=== PATIENT | female | born 1965 | race Caucasian/White ===

== ENCOUNTER 2016-12-06 10:51 | Emergency (ER) ==
[2016-12-06 10:59] VITALS: BP 151/109
[2016-12-06 11:12] LABS: URINE CULTURE PL NEEDED? NO; URINE SOURCE CLEAN CATCH
[2016-12-06] MEDS ORDERED: TORADOL IM ONE (11:17)
[2016-12-06 11:26] LABS: BILIRUBIN URINE NEGATIVE (NEGATIVE); BLOOD URINE 1+ (NEGATIVE); CLARITY CLEAR (CLEAR); COLOR YELLOW; GLUCOSE URINE NEGATIVE (NEGATIVE); LEUKOCYTES URINE TRACE (NEGATIVE); NITRITE URINE NEGATIVE (NEGATIVE); PROTEIN URINE TRACE mg/dL (NEGATIVE); UROBILINOGEN URINE NORMAL
[2016-12-06 11:27] LABS: URINE EPITHELIAL CELLS >10 /HPF (<10); URINE WBC <10 /HPF (<10)
--- NOTE | 2016-12-06 11:29 | PROVIDER DOCUMENTATION ---
HPI-Musculoskeletal Pain/Inj - GENERAL Chief Complaint: Back Pain Stated Complaint: BACK PAIN Time Seen by Provider: 12/06/16 11:08 Source: patient - HX OF PRESENT ILLNESS-MUSKULOSKELTAL Nature of Presenting Problem: Pt is 51 y/o F presents to the ED with thoracic back pain. Pt states pain started yesterday. Pt states pain radiated to L flank and into L shoulder. Pt denies trauma or injury. Pt denies cough, cold and congestion. Quality of Pain: reports: aching Severity in ED: moderate Onset/Duration: 24 hours ago Timing: still present, intermittent Modifying Factors: improves with: movement (worse) Any recent injury?: No Locality of Occurance: Home Similar Symptoms Previously?: Yes Recently seen or treated by another doctor?: No - FALL INJURY Location of Pain/Injury: reports: none - BACK & NECK PAIN/INJURY Back/Neck Pain Location: reports: T-spine Back/Neck Pain Radiation: reports: shoulders (L), Other (L flank) Context / Method of Injury: reports: unknown Associated Symptoms: reports: muscle spasms, weakness in upper ext (L arm). denies: loss of bladder control, loss of bowel control, fever, lower back pain, numbness in legs/feet, numbness in upper ext, sensory/motor loss, tingling in legs/feet, tingling in upper ext, weakness in legs/feet History of Chronic Neck or Back Pain?: No - UPPER EXTREMITY PAIN/INJURY Extremities Pain Location: shoulder: left (pain) Context / Method of Injury: reports: unknown Associated Symptoms: reports: weakness in upper ext (L arm). denies: muscle spasms, numbness in upper ext, sensory/motor loss, tingling in upper ext Review of Systems - Adult - REVIEW OF SYSTEMS - ADULT Constitutional: denies: chills, fever Eyes: denies: blurred vision, double vision Ears, Nose, Mouth & Throat: denies: ear pain, nose pain, mouth swelling, throat pain Cardiovascular: denies: chest pain, heart murmur, irregular heart rate Respiratory: denies: cough, shortness of breath, wheezing Gastrointestinal: denies: abdominal pain, diarrhea, nausea, vomiting Genitourinary: denies: dysuria, hematuria Musculoskeletal: reports: back pain (thoracic). denies: bone pain, joint pain, neck pain Integumentary: denies: hives, itching Neurological: denies: dizziness/vertigo, headache/migraines Psychiatric: reports: no symptoms reported Endocrine: reports: no symptoms reported Hematologic/Lymphatic: reports: no symptoms reported Allergic/Immunologic: reports: no symptoms reported All Other Systems: Reviewed and Negative Past History - Adult - PAST MEDICAL HISTORY-ADULT Review of Records: reports: Nursing Assessment Review, Medications Reviewed, Social history reviewed & non-contributory. Major Childhood Illnesses: reports: denies history Cardiovascular: reports: denies history Respiratory: reports: denies history Gastrointestinal: reports: denies history Obstetrical/Gynecological: reports: denies history Genitourinary: reports: denies history Musculoskeletal: reports: denies history Neurological: reports: denies history Psychiatric: reports: anxiety Endocrine/Immune: reports: denies history Other Conditions: reports: denies history - PRIOR SURGERIES/PROCEDURES Surgical/Procedure History: reports: cholecystectomy - IMMUNIZATION STATUS Childhood Immunizations: See Nurse Assessment Flu Vaccine: See Nurse Assessment - FAMILY HISTORY Family History: reviewed, not pertinent - SOCIAL HISTORY Smoking: cigarettes, less than 1 pack/day Provider spent 3-5 mins advising pt. on dangers of tobacco.: Discussed manners to quit use, and f/u contacts for add'l counseling. Substance Use: alcohol Alcohol Use Frequency: occasionally Number of drinks per typical drinking period:: 2 drinks Living Situation: family Physical Exam-Injury Related - Physical Exam-Injury Related Initial Vital Signs Reviewed: Yes General Appearance: appears well, alert, no apparent distress Eyes: PERRL/EOMI, pink conjunctivae, fundi clear, no AV nicking Head, Ears, Nose, Mouth & Throat: normocephalic/atraumatic, moist mucous membranes, normal ENT inspection, TMs normal, pharynx normal Neck: non-tender, full range of motion, supple, normal inspection Respiratory: chest non-tender, lungs clear, normal breath sounds, no pleuratic chest pain, no respiratory distress, no accessory muscle use Cardiovascular: normal peripheral pulses, regular rate, rhythm, no edema, no gallop, no JVD, no murmur Abdominal Exam: normal bowel sounds, soft, no organomegaly, no pulsatile mass, tenderness (L flank) Lymphatic: no adenopathy Back Exam: no vertebral tenderness, CVA tenderness (thoracic L side), decreased range of motion, muscle spasm (thoracic L side) Extremity: normal gait, normal inspection, no pedal edema, no calf tenderness, normal capillary refill, pelvis stable, tenderness (L shoulder). 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, grossly normal, no motor/sensory deficits Psych/Mental Status: normal mood/affect, normal thought content, normal thought process, oriented x 3 Progress - PLAN OF CARE/RESULTS Progress/Plan/Lab Results: Laboratory Tests 12/06/16 11:05 Urine Source CLEAN CATCH Urine Color YELLOW Urine Clarity CLEAR Urine pH 6.0 Ur Specific [place] 1.020 Urine Protein TRACE A Urine Ketones NEGATIVE Urine Blood 1+ A Urine Nitrite NEGATIVE Urine Bilirubin NEGATIVE Urine Urobilinogen NORMAL Urine Microscopic RBC 10-20 A Urine WBC TRACE A Urine Microscopic WBC <10 Ur Epithelial Cells >10 A Urine Glucose NEGATIVE Orders Category Date Time Status CHEST-2 VIEWS [RAD] Stat Exams 12/06/16 11:[address] W/POSS RFLX CULT [URINALYSIS] Stat Lab 12/06/16 11:05 Completed Ketorolac [Toradol] Med 12/06/16 11:17 Discontinued 60 mg IM NOW ONE Vital Signs - 24 hr 12/06/16 10:54 Temperature 97.3 F L Pulse Rate 89 Respiratory 18 Rate Blood Pressure 151/109 O2 Sat by Pulse 97 Oximetry - XRAY 1 XRAY: Bilateral XRAY Study: Chest Impression: Normal XRAY Interpretation: NAD Departure - Departure Time of Disposition Order: 12:49 DIAGNOSIS: Strain of thoracic region Qualifiers: Encounter type: initial encounter Qualified Code(s): S29.019A - Strain of muscle and tendon of unspecified wall of thorax, initial encounter DIAGNOSIS: (Ruled Out): Strain of thoracic paraspinal muscles excluding T1 and T2 levels Disposition: HOME 01 Certified Medical Emergency: Emergent Condition: Stable Additional Instructions: ED Follow Up Instructions: You have been treated by a care provider in the Emergency Department. These instructions are being provided to you so you can have an understanding of how to care for yourself upon discharge. Upon discharge from the Emergency Department, you are responsible for making arrangements for follow-up care by a physician of your choice. Take all prescribed medications as directed. Return to the Emergency Department immediately for any new or worsening symptoms. You may call the Physician Referral phone number at [phone] to obtain a list of Physicians who are taking new patients. Prescriptions: Hydrocodone/Acetaminophen [Sharon 7.5-325 Tablet] 1 each PO Q6-8H PRN PRN #20 tablet PRN Reason: Pain Methocarbamol [Robaxin-750] 1,500 mg PO Q6-8H PRN PRN #40 tablet PRN Reason: muscle spasm Referrals: Constantin Oaklye MD [Primary Care Provider] - Forms: Return to School/Parent Work Instructions: Acetaminophen; Hydrocodone tablets or capsules, Thoracic Strain, [id number], Methocarbamol tablets Attestation - Scribe Verification/Attestation Scribe:: Ana Collado Acting as Scribe for:: Holger Nolasco Scribe documention review:: This chart was documented by a scribe and accurately reflects the service the provider performed and the decisions made by the provider.
--- NOTE | 2016-12-06 12:17 | Diag Imaging Result Document ---
PROCEDURE NAME: CHEST-2 VIEWS - 12/06/2016 CHEST 2 VIEWS: COMPARISON: No comparison exam. FINDINGS: Heart size is normal. The lungs appear clear and do not appear hyperexpanded. There is no pleural effusion or pneumothorax identified. IMPRESSION: No evidence of acute disease.
== END 2016-12-06 12:55 | disposition home or self-care (01) ==
LOC: P.ED 10:51
DX: S29.019A Strain of muscle and tendon of unspecified wall of thorax, initial encounter (principal); M54.6 Pain in thoracic spine; R10.9 Unspecified abdominal pain; M25.512 Pain in left shoulder; M62.838 Other muscle spasm; R53.1 Weakness; F17.210 Nicotine dependence, cigarettes, uncomplicated; Z71.6 Tobacco abuse counseling; F41.9 Anxiety disorder, unspecified; Z79.899 Other long term (current) drug therapy
CPT/HCPCS: 71020; 81001; J1885